=== PATIENT | female | born 1995 | race Caucasian/White ===

== ENCOUNTER 2017-07-22 11:24 | Inpatient (IN) | payer BC ==
[~2017-07-22] VITALS: Ht 162.6 cm; Wt 59.9 kg
[~2017-07-22 11:24] MED LIST: Z.0.LEXAPRO10 MG; Z.0.SEROQUEL50 MG; [UNRECOGNIZED DRUG - OTHER]
[2017-07-22] MEDS ORDERED: SODIUM CHLORIDE 0.9% 1000ML 1,000 ML IV STA (11:42)
[2017-07-22] MEDS ORDERED: PEG (High)/E-LYTE SOLN 4,000 ML BTL PO ONE ×2 (11:45→15:00)
[2017-07-22 11:50] LABS: BASOPHILS % 0.5 % (0.0-1.0); EOSINOPHILS # (AUTO) 0.2 (0.0-0.4); HEMATOCRIT 45.4 % (34.2-44.1); HEMOGLOBIN 14.6 g/dL (12.0-16.0); LYMPHOCYTES # (AUTO) 1.1 (1.0-3.2); LYMPHOCYTES % 15.1 % (18.0-39.1); MEAN CORPUSCULAR HEMOGLOBIN 29.6 pg (28-32); MEAN CORPUSCULAR HGB CONC 32.2 g/dL (31-35); MEAN CORPUSCULAR VOLUME 92.1 fL (81-99); MONOCYTES # (AUTO) 0.7 (0.2-0.8); MONOCYTES % 9.1 % (4.4-11.3); NEUTROPHILS # (AUTO) 5.4 (2.1-6.9); PLATELET COUNT 277 x10e3/uL (140-360); RED BLOOD COUNT 4.93 x10e6/uL (3.6-5.1); RED CELL DISTRIBUTION WIDTH 12.1 % (11.7-14.4)
[2017-07-22 11:57] LABS: INR 1.14; PROTHROMBIN TIME 13.7 seconds (11.9-14.5)
[2017-07-22 11:58] LABS: PARTIAL THROMBOPLASTIN TIME 27.6 seconds (23.8-35.5)
[2017-07-22 12:05] LABS: ALANINE AMINOTRANSFERASE 19 IU/L (0-55); ALBUMIN 4.5 g/dL (3.5-5.0); ALBUMIN/GLOBULIN RATIO 1.4 (0.8-2.0); ALKALINE PHOSPHATASE 61 IU/L (40-150); ANION GAP 8.3 mmol/L (8-16); BLOOD UREA NITROGEN 7 mg/dL (7-26); BUN/CREATININE RATIO 8 (6-25); CARBON DIOXIDE 27 mmol/L (22-29); CHLORIDE 110 mmol/L (98-107); CREATINE KINASE 2472 IU/L (29-168); CREATININE, SERUM 0.89 mg/dL (0.57-1.11); EST GLOMERULAR FILTRATION RATE > 60 ML/MIN (60-); GLUCOSE 96 mg/dL (74-118); POTASSIUM 4.3 mmol/L (3.5-5.1); SODIUM 141 mmol/L (136-145)
[2017-07-22 15:11] LABS: BILIRUBIN,URINE NEGATIVE (NEGATIVE); COLOR,URINE GREEN (YELLOW); KETONES,URINE NEGATIVE (NEGATIVE); LEUKOCYTE ESTERASE ,URINE NEGATIVE (NEGATIVE); NITRITE,URINE NEGATIVE (NEGATIVE); PROTEIN,URINE DIPSTICK NEGATIVE (NEGATIVE); URINE UROBILINOGEN 0.2 mg/dL (0.2 - 1)
[2017-07-22 15:13] LABS: PREGNANCY TEST, URINE NEGATIVE (NEGATIVE)
[2017-07-22 15:14] LABS: AMPHETAMINES SCREEN,URINE NEGATIVE (NEGATIVE); BENZODIAZEPINES SCREEN,URINE POSITIVE (NEGATIVE); PHENCYCLIDINE SCREEN,URINE NEGATIVE (NEGATIVE)
[2017-07-22 15:19] LABS: CLARITY,URINE SL CLOUDY (CLEAR)
[2017-07-22 15:23] LABS: BACTERIA,URINE FEW /HPF; EPITHELIAL CELLS,URINE FEW /LPF
[2017-07-22 15:27] LABS: ACETAMINOPHEN 23 ug/mL (10-30)
[2017-07-22 15:39] LABS: FREE T4 (FREE THYROXINE) 0.84 ng/dL (0.9-1.8); THYROID STIMULATING HORMONE 1.415 uIU/mL (0.350-4.940)
[2017-07-22 16:15] LABS: SALICYLATE < 5.0 mg/dL (0-30)
[2017-07-22] MEDS ORDERED: SODIUM CHLORIDE 0.9% 1000ML 1,000 ML IV SCH (18:00)
[2017-07-22] MEDS ORDERED: ONDANSETRON HCL INJ 2 MG/ML VIAL IV PRN ×2 (18:00→19:00)
[2017-07-22] MEDS: SODIUM CHLORIDE 0.9% 1000ML 1,000 ML IV SCH (20:13)
[2017-07-23] VITALS (7 sets, daily range): BP systolic 110–125; BP diastolic 62–83
[2017-07-23 00:44] LABS: ANION GAP 10.2 mmol/L (8-16); BLOOD UREA NITROGEN 8 mg/dL (7-26); BUN/CREATININE RATIO 13 (6-25); CALCIUM 8.1 mg/dL (8.4-10.2); CARBON DIOXIDE 18 mmol/L (22-29); CHLORIDE 115 mmol/L (98-107); CREATININE, SERUM 0.61 mg/dL (0.57-1.11); EST GLOMERULAR FILTRATION RATE > 60 ML/MIN (60-); GLUCOSE 101 mg/dL (74-118); POTASSIUM 4.2 mmol/L (3.5-5.1); SODIUM 139 mmol/L (136-145)
[2017-07-23] MEDS: SODIUM CHLORIDE 0.9% 1000ML 1,000 ML IV SCH ×3 (01:06→11:00)
[2017-07-23 04:52] LABS: CREATINE KINASE 1567 IU/L (29-168)
[2017-07-23 07:28] LABS: BASOPHILS # (AUTO) 0.1 (0.0-0.1); BASOPHILS % 0.7 % (0.0-1.0); EOSINOPHILS # (AUTO) 0.2 (0.0-0.4); EOSINOPHILS % 2.4 % (0.0-6.0); HEMATOCRIT 36.2 % (34.2-44.1); HEMOGLOBIN 11.8 g/dL (12.0-16.0); LYMPHOCYTES # (AUTO) 1.3 (1.0-3.2); LYMPHOCYTES % 13.8 % (18.0-39.1); MEAN CORPUSCULAR HEMOGLOBIN 30.3 pg (28-32); MEAN CORPUSCULAR HGB CONC 32.6 g/dL (31-35); MEAN CORPUSCULAR VOLUME 93.1 fL (81-99); MONOCYTES # (AUTO) 0.8 (0.2-0.8); MONOCYTES % 8.4 % (4.4-11.3); NEUTROPHILS # (AUTO) 6.8 (2.1-6.9); NEUTROPHILS % 74.3 % (38.7-80.0); PLATELET COUNT 194 x10e3/uL (140-360); RED BLOOD COUNT 3.89 x10e6/uL (3.6-5.1); RED CELL DISTRIBUTION WIDTH 12.2 % (11.7-14.4)
[2017-07-23 09:46] LABS: ANION GAP 10.2 mmol/L (8-16); BLOOD UREA NITROGEN 8 mg/dL (7-26); BUN/CREATININE RATIO 12 (6-25); CALCIUM 8.5 mg/dL (8.4-10.2); CARBON DIOXIDE 22 mmol/L (22-29); CHLORIDE 112 mmol/L (98-107); CREATININE, SERUM 0.67 mg/dL (0.57-1.11); EST GLOMERULAR FILTRATION RATE > 60 ML/MIN (60-); GLUCOSE 109 mg/dL (74-118); POTASSIUM 4.2 mmol/L (3.5-5.1); SODIUM 140 mmol/L (136-145)
[2017-07-23 09:48] LABS: CREATINE KINASE 1246 IU/L (29-168)
[2017-07-23] MEDS: FAMOTIDINE 20 MG TAB PO SCH ×2 (10:45→16:30)
--- NOTE | 2017-07-23 16:28 | History and Physical ---
PRIMARY CARE PROVIDER: Not on staff. CHIEF COMPLAINT: [place] and benzo overdose in a suicide attempt. HISTORY OF PRESENT ILLNESS: Ms. Stokes is a 21-year-old lady with bipolar and depression who took a handful of [place] and other medications, not sure exactly how much and of what. She claims to have taken [place], Inderal, moises, Seroquel, and apparently some kind of benzodiazepine since that is showing on her UDS. It was a suicide attempt due to depression. REVIEW OF SYSTEMS: She denies fever, chills, or weight loss. She denies sinus congestion or sore throat. She denies chest pain or palpitations. She denies shortness of breath, wheezing, or cough. She denies abdominal pain, nausea, vomiting, or melena. She denies dysuria or flank pain. She denies rash or pruritus. She denies joint pain or swelling. She denies bleeding or bruising. She has a history of depression with suicidal ideation and suicidal attempt. She denies homicidal ideation. She denies headache, vertigo, or loss of consciousness. PAST MEDICAL HISTORY: Significant for bipolar and depression, for which she is evidently taking [place] and Lexapro, possibly Seroquel, not sure where she got these medications. The only medication listed on her home med list is Lexapro. She denies any history of hypertension or diabetes. She denies any significant surgical history, and she is not a smoker. FAMILY HISTORY: Unremarkable. SOCIAL HISTORY: The patient is . [place] is her primary language. She does not smoke, drink, or use illegal drugs, and she is generally independently functioning. PHYSICAL EXAM: PSYCHIATRIC: She is alert and oriented times 3 with normal mood and affect. CONSTITUTIONAL: She has a normal body habitus. She is in no acute distress. VITAL SIGNS: Blood pressure 113/77, pulse 86 and regular, respiratory rate 16, O2 sat 99% on room air, and temperature 98.9. HEENT: Head is atraumatic. Her eyes are anicteric with clear conjunctivae. Ears and nares are without erythema or discharge. Oropharynx is clear. NECK: Supple with no mass or thyromegaly. LYMPHATICS: She has no palpable cervical, axillary, or inguinal adenopathy. CARDIOVASCULAR: Her heart has a regular rate and rhythm without murmurs or third sounds. She has no carotid bruits. She has no peripheral edema. She has palpable dorsal pedal pulses. RESPIRATORY: Lungs are clear to auscultation and percussion with normal respiratory effort. GASTROINTESTINAL: Abdomen is soft without organomegaly, masses, or tenderness. She has normal bowel sounds present. CUTANEOUS: Her skin is warm dry to touch, and no rash or skin breakdown. MUSCULOSKELETAL: Her joints are normal in alignment without erythema or swelling. She has no calf tenderness. NEUROLOGIC: Exam is nonfocal with intact cranial nerves and no motor or sensory deficits. DIAGNOSTIC/LABORATORY STUDIES: Her UA is clear. Her UDS is positive for benzos. Her toxicology screen shows initial lithium level of 4.5; six hours later 2.5; six hours later 1.6; and six hours later 1.0. Troponin less than 0.001 times 2. Her CK 1567 and then 1246, T4 0.84, and TSH 1.415. CBC shows a white count 7.36 with 73% neutrophils, 15% lymphocytes, hemoglobin 14.6, hematocrit 45.4, and platelet count 277,000. Chemistry shows normal electrolytes. CO2 is 18, glucose 101, creatinine 0.61, BUN 8, and calcium is 8.1. Transaminases, bilirubin, and alk phos are normal. Coags are normal. IMPRESSION AND PLAN 1. [place] toxicity, which is resolving with IV fluids. 2. Rhabdomyolysis, also resolving with IV fluids. 3. [place]/benzo overdose. 4. Suicide attempt. 1. Bipolar and depression. These last 3 issues will be addressed by a psych consult. We will continue her Seroquel 50 mg at bedtime for now and will defer any other psych meds to the psychiatry service. 2. For prophylaxis, she will be on Pepcid 20 mg twice daily before meals. Job#: [id number] ARON
[2017-07-23] MEDS ORDERED: QUETIAPINE FUMARATE 25 MG TAB PO SCH (21:00)
== END 2017-07-23 20:35 | DRG 918 ==
LOC: ER 11:24 → ERHOLD 18:55 → ICU 07-23 14:43
PROVIDERS: ADMIT Internal Medicine; ATTEND Internal Medicine
DX: T56.892A Toxic effect of other metals, intentional self-harm, initial encounter (principal); M62.82 Rhabdomyolysis; T42.4X2A Poisoning by benzodiazepines, intentional self-harm, initial encounter; F31.9 Bipolar disorder, unspecified; F43.10 Post-traumatic stress disorder, unspecified; F41.9 Anxiety disorder, unspecified
CPT/HCPCS: 36415; 80048; 80053; 80178; 80307; 80320; 80329; 81001; 81025; 82550; 82553; 84439; 84443; 84484; 85025; 85610; 85730; 87086; 93005; 99285; J2405; J7030